=== PATIENT | female | born 1945 | race Caucasian/White ===

== ENCOUNTER → 2018-04-29 14:53 | Outpatient (CLI) | payer MEDICARE, SELFPAY ==
--- NOTE | 2018-04-29 | DI.MG.S_ITS ---
UNILATERAL LEFT DIGITAL SCREENING MAMMOGRAM 3D/2D WITH CAD POST MASTECTOMY WITH AUGMENTATION: 04/29/2018 CLINICAL: Routine screening. Personal history of right breast cancer. Comparison is made to exams dated: 03/06/2017 mammogram, 01/07/2016 mammogram, and 12/01/2014 mammogram - [facility]. The tissue of the left breast is predominantly fatty. Current study was also evaluated with a Computer Aided Detection (CAD) system. Left breast implant is stable and intact. No significant masses, calcifications, or other findings are seen in the breast. There has been no significant interval change. IMPRESSION: NEGATIVE There is no mammographic evidence of malignancy. A 1 year screening mammogram is recommended. This exam was interpreted at Station ID: [id number]. NOTE: For mammograms, a report in lay terms will be sent to the patient. Approximately 15% of breast malignancies will not be visualized mammographically. In the management of a palpable breast mass, a negative mammogram must not discourage biopsy of a clinically suspicious lesion. Electronically Signed By: Yfn quinteros/evelyn:04/29/2018 21:54:13 letter sent: Normal Exam ACR BI-RADS Category 1: Negative 3341F
== END ==
PROVIDERS: Family Provider Family Medicine; PCP Family Medicine; Visit Provider Family Medicine
DX: Z12.31 Encounter for screening mammogram for malignant neoplasm of breast (principal); Z85.3 Personal history of malignant neoplasm of breast
CPT/HCPCS: 77063; 77065

== ENCOUNTER → 2019-05-04 08:57 | Outpatient (CLI) | payer MEDICARE, SELFPAY ==
--- NOTE | 2019-05-04 | DI.MG.S_ITS ---
UNILATERAL LEFT DIGITAL SCREENING MAMMOGRAM 3D/2D WITH CAD POST MASTECTOMY WITH AUGMENTATION: 05/04/2019 CLINICAL: Routine screening. Personal history of right breast cancer. Comparison is made to exams dated: 04/29/2018 mammogram, 03/06/2017 mammogram, 01/07/2016 mammogram, and 12/01/2014 mammogram - [facility]. There are scattered fibroglandular elements in left breast. Current study was also evaluated with a Computer Aided Detection (CAD) system. Left breast implant is stable. No significant masses, calcifications, or other findings are seen in the breast. There has been no significant interval change. IMPRESSION: NEGATIVE There is no mammographic evidence of malignancy. A 1 year screening mammogram is recommended. This exam was interpreted at Station ID: [id number]. NOTE: For mammograms, a report in lay terms will be sent to the patient. Approximately 15% of breast malignancies will not be visualized mammographically. In the management of a palpable breast mass, a negative mammogram must not discourage biopsy of a clinically suspicious lesion. Electronically Signed By: Yfn quinteros/evelyn:05/04/2019 10:15:21 letter sent: Normal Exam ACR BI-RADS Category 1: Negative 3341F
== END ==
PROVIDERS: Family Provider Family Medicine; PCP Family Medicine; Visit Provider Family Medicine
DX: Z12.31 Encounter for screening mammogram for malignant neoplasm of breast (principal); Z85.3 Personal history of malignant neoplasm of breast
CPT/HCPCS: 77063; 77067

== ENCOUNTER → 2019-10-17 13:17 | Outpatient (CLI) | payer MEDICARE, SELFPAY ==
--- NOTE | 2019-10-17 13:20 | DI.RAD.S_ITS ---
PROCEDURE: XR FOOT RT MIN 3V INDICATIONS: Right foot pain TECHNIQUE: 3 views of the foot were acquired. COMPARISON: None. FINDINGS: Bones: Transverse fracture of the base of the fifth metatarsal. No significant displacement. No dislocations. No suspicious bony lesions. Soft tissues: No tibiotalar joint effusion. Achilles tendon appears normal. IMPRESSION: Transverse fracture at the base of the fifth metatarsal. Dictated by: Jose Alfredo Vázquez M.D. on 10/17/2019 at 13:48 Approved by: Jose Alfredo Vázquez M.D. on 10/17/2019 at 13:55
== END ==
PROVIDERS: PCP Family Medicine; Visit Provider Nurse Practitioner
DX: M79.671 Pain in right foot (principal); S92.351A Displaced fracture of fifth metatarsal bone, right foot, initial encounter for closed fracture
CPT/HCPCS: 73630

== ENCOUNTER → 2019-11-18 12:04 | Outpatient (CLI) | payer MEDICARE, SELFPAY ==
--- NOTE | 2019-11-18 | DI.RAD.S_ITS ---
PROCEDURE: XR FOOT RT MIN 3V INDICATIONS: Displaced fracture of fifth metatarsal bone, right foot, ini TECHNIQUE: 3 views of the foot were acquired. COMPARISON: [facility], , XR FOOT RT MIN 3V, 10/17/2019, 13:20. FINDINGS: Bones: Unchanged alignment of fifth metatarsal base fracture. There is interval healing sclerosis. Soft tissues: No tibiotalar joint effusion. Achilles tendon appears normal. IMPRESSION: No change in alignment Dictated by: Chino Bailey M.D. on 11/18/2019 at 16:52 Approved by: Chino Bailey M.D. on 11/18/2019 at 16:53
== END ==
PROVIDERS: PCP Family Medicine; Referring Provider Family Medicine; Visit Provider Family Medicine
DX: S92.351A Displaced fracture of fifth metatarsal bone, right foot, initial encounter for closed fracture (principal)
CPT/HCPCS: 73630

== ENCOUNTER → 2019-12-16 13:49 | Outpatient (CLI) | payer MEDICARE, SELFPAY ==
--- NOTE | 2019-12-16 | DI.RAD.S_ITS ---
PROCEDURE: XR FOOT RT MIN 3V INDICATIONS: RIGHT FOOT PAIN TECHNIQUE: 3 views of the foot were acquired. COMPARISON: [facility], , XR FOOT RT MIN 3V, 11/18/2019, 12:24. FINDINGS: Bones: No fractures or dislocations. No suspicious bony lesions. Mild first MTP joint degeneration. Unchanged alignment of fifth metatarsal base fracture Soft tissues: No tibiotalar joint effusion. Achilles tendon appears normal. IMPRESSION: Unchanged alignment of fifth metatarsal base fracture Dictated by: Chino Bailey M.D. on 12/16/2019 at 14:51 Approved by: Chino Bailey M.D. on 12/16/2019 at 14:53
== END ==
PROVIDERS: PCP Family Medicine; Referring Provider Family Medicine; Visit Provider Family Medicine
DX: M25.571 Pain in right ankle and joints of right foot (principal); S92.351A Displaced fracture of fifth metatarsal bone, right foot, initial encounter for closed fracture; X58.XXXA Exposure to other specified factors, initial encounter
CPT/HCPCS: 73630

== ENCOUNTER → 2020-03-27 14:22 | Outpatient (CLI) | payer MEDICARE, SELFPAY ==
[2020-03-28 09:48] LABS: COVID19 Sendout Not Detected (Not Detect)
== END ==
PROVIDERS: PCP Family Medicine; Visit Provider Registered Nurse
DX: Z01.812 Encounter for preprocedural laboratory examination (principal)
CPT/HCPCS: 87635

== ENCOUNTER 2020-03-30 12:36 | Day surgery (SDC) | payer MEDICARE, SELFPAY ==
--- NOTE | 2020-03-30 07:13 | PM.HP.1 ---
History of Present Illness History of Present Illness Date Patient Seen: 03/30/20 Time Patient Seen: 13:35 Chief complaint: [id number] Narrative: 74 year old female comes in today for consideration of a screening colonoscopy. History of colonic polyps; last colonoscopy over 10 years ago. Results not available at time of dictation. Prior to that, thinks that she had a sigmoidoscopy as well. There have been no lower GI symptoms suggesting disease such as change in bowel habits, bleeding, abdominal pain or anemia. There's been no family history of colon cancer or colon polyps. Overall health issues have been stable, including no major cardiac events for at least 6 weeks. PCP: Dr. Bonner Past medical history: Osteoporosis Hyperlipidemia History of breast cancer History of colon polyps Actinic keratosis Right foot fracture Vertigo Past surgical history: Mastectomy, right Breast reconstruction Hysterectomy section Family history: No colon cancer/polyps. 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 Meds Home Medications and Allergies Home Medications Medication Instructions Recorded Confirmed Type aspirin 81 mg tablet,delayed 81 mg PO DAILY 10/17/19 03/30/20 History release atorvastatin 40 mg tablet 40 mg PO DAILY 10/17/19 03/30/20 History calcium carbonate PO 10/17/19 10/17/19 History cholecalciferol (vitamin D3) 25 1,000 unit PO DAILY 10/17/19 03/30/20 History mcg (1,000 unit) capsule glucosamine HCl PO 10/17/19 10/17/19 History multivitamin 1 tab PO DAILY 10/17/19 03/30/20 History vitamin B complex 1 tab PO DAILY 10/17/19 03/30/20 History Allergies Allergy/AdvReac Type Severity Reaction Status Date / Time No Known Drug Allergies Allergy Verified 03/30/20 12:36 Review of Systems Review of Systems ROS: Yes All systems reviewed with the patient and are negative except as otherwise documented Exam Narrative Exam Narrative: GENERAL: Alert and oriented, appearing stated age and in no acute distress. HEENT: Head normocephalic/atraumatic. Pupils equal, round, and reactive to light and accomodation. Extraocular muscles intact. Tympanic membranes clear. Nasal mucosa moist, septum midline. Oral mucosa moist, no lesions. Neck soft and supple, no lymphadenopathy. LUNGS: Clear to ausculation bilaterally, no wheezes, rhonchi or rales. CV: Normal S1 and S2 with regular rate and rhythm, no audible murmurs, rubs or gallops. ABDOMEN: Soft, non-tender, non-distended, no organomegaly. Positive bowel sounds. EXTREMITIES: No clubbing, cyanosis, or edema. NEURO: Cranial nerves II through XII grossly intact, no focal deficits. PSYCH: Alert and oriented x 3. SKIN: No concerning lesions. Assessment & Plan Assessment & Plan narrative: 1. History of colon polyps 2. Screening for colon cancer Plan for colonoscopy. The nature and character of the procedure as well as anticipated results were discussed. The possibility of not completing the procedure was also discussed. Possible complications including aspiration pneumonia, bleeding, perforation and reaction to medications either for sedation or preparation and missed lesions were discussed. Questions were answered and proceeding to the colonoscopy was elected. Informed consent signed. I sincerely appreciate the referral allowing me to participate in this patient's care. Please contact me with any questions or concerns.
--- NOTE | 2020-03-30 07:14 | PM.OP.ENDO ---
Operative Date/Time/Diagnoses Date of procedure: 03/30/20 Time of procedure: 13:37 Pre-op diagnosis: 1. History of colon polyps 2. Screening for colon cancer Post-op diagnosis: other (1. Normal colonoscopy, 2. Pancolonic diverticulosis) Procedure & Clinicians Study performed: Colonoscopy Same procedure as scheduled: Yes Indications: 1. History of colon polyps 2. Screening for colon cancer Surgeon: Joyce Rodríguez Procedure Notes SCOAP/Timeout: 13:37 Procedure in detail: ENDOSCOPIST: Joyce Rodríguez MD Sedation RN: Emilia Shrestha RN Sedation start time: 1:37 p.m. Sedation end time: 1:53 p.m. PROCEDURE: Colonoscopy INDICATIONS: 1. History of colon polyps 2. Screening for colon cancer MEDICATION: Levsin 0.125 mg sublingual, incremental doses of Versed and fentanyl until appropriate level sedation achieved. ASA CLASS: 2 CECAL WITHDRAWAL TIME: 6 minutes COMPLICATIONS: None. EXTENT OF PROCEDURE: Cecum. QUALITY OF PREP: Good with portions of liquid stool. PROCEDURE: Prior to insertion of the colonoscope, a digital rectal examination was accomplished with circumferential palpation of the distal rectal mucosa without significant findings being noted. The high-definition pediatric colonoscope was passed into the rectum in the usual fashion and advanced over to the cecum without difficulty. The ileocecal valve, appendiceal stoma, and medial wall all could be inspected and no abnormalities were seen. ASCENDING COLON: As the colonoscope was withdrawn, care was taken to expose and inspect the haustral folds and pancolonic diverticulosis was noted throughout withdrawal. HEPATIC FLEXURE: Normal, no polyps or other abnormalities. TRANSVERSE COLON: Normal, no polyps or other abnormalities. DESCENDING COLON: Normal, no polyps or other abnormalities. SIGMOID COLON: Normal, no polyps or other abnormalities. RECTUM: Normal. J maneuver was produced. There was no significant perianal disease. The J maneuver was broken. The remainder of the rectum was inspected and there was no external hemorrhoid disease. The scope was withdrawn. IMPRESSION: 1. Normal colonoscopy 2. Pancolonic diverticulosis, mild PLAN: 1. This can be patient's last lifetime colonoscopy. The possibility of a missed lesion including a malignancy has been discussed with the patient previously. Potential alarm symptoms have been discussed and should be reported immediately. Specimen(s): none sent Complications: none Post-procedure Follow up: as needed Disposition: PACU
[2020-03-30 12:50] VITALS: BP 139/69; PULSE 86; RESP 16; TEMP 36.5; O2SAT 99; BMI 26.4
[2020-03-30] MEDS: HYOSCYAMINE 0.125 MG TABLET PO ×2 (12:58)
[2020-03-30] MEDS: LACTATED RINGERS 1,000 ML 200 ML IV (12:58)
[2020-03-30] MEDS: MIDAZOLAM 5 MG/5 ML VIAL IV (13:37)
[2020-03-30] MEDS: fentaNYL 250 MCG/5 ML INJ IV (13:38)
[2020-03-30 13:59] VITALS: BP 126/63; PULSE 71; RESP 13; TEMP 36.5; O2SAT 95
[2020-03-30 14:01] VITALS: BP 125/53; PULSE 78; RESP 16; O2SAT 94
--- NOTE | 2020-03-30 14:01 | SUR.PHASEI ---
stable PACU report to Ann.
[2020-03-30 14:06] VITALS: BP 127/64; PULSE 80; RESP 16; O2SAT 96
[2020-03-30 14:16] VITALS: BP 118/63; PULSE 75; RESP 14; O2SAT 95
[2020-03-30 14:21] VITALS: BP 117/66; PULSE 71; RESP 13; TEMP 36.2; O2SAT 96
--- NOTE | 2020-03-30 14:31 | SUR.PHASEII ---
1418 to OPD, awake, oriented, feels ready to go home. Ride called, IV dc'd and clothes given
== END 2020-03-30 14:35 | disposition home or self-care (01) ==
PROVIDERS: PCP Family Medicine; Referring Provider Student in an Organized Health Care Education/Training Program; Visit Provider Student in an Organized Health Care Education/Training Program
PROC: 0DJD8ZZ Inspection of Lower Intestinal Tract, Via Natural or Artificial Opening Endoscopic (ICD-10-PCS; CPT 45378; principal; 2020-03-30 13:45)
DX: Z12.11 Encounter for screening for malignant neoplasm of colon (principal); Z86.010 Personal history of colon polyps; K57.30 Diverticulosis of large intestine without perforation or abscess without bleeding
CPT/HCPCS: G0105; J2250; J3010

== ENCOUNTER → 2020-06-04 14:59 | Outpatient (CLI) | payer MEDICARE, SELFPAY ==
--- NOTE | 2020-06-04 | DI.MG.S_ITS ---
UNILATERAL LEFT DIGITAL SCREENING MAMMOGRAM 3D/2D WITH CAD WITH AUGMENTATION: 06/04/2020 CLINICAL: Routine screening. Breast cancer. Comparison is made to exams dated: 05/04/2019 mammogram, 04/29/2018 mammogram, and 03/06/2017 mammogram - [facility]. There are scattered fibroglandular elements in left breast. Current study was also evaluated with a Computer Aided Detection (CAD) system. Left breast implant is stable. No significant masses, calcifications, or other findings are seen in the breast. There has been no significant interval change. IMPRESSION: NEGATIVE There is no mammographic evidence of malignancy. A 1 year screening mammogram is recommended. This exam was interpreted at Station ID: [id number]. NOTE: For mammograms, a report in lay terms will be sent to the patient. Approximately 15% of breast malignancies will not be visualized mammographically. In the management of a palpable breast mass, a negative mammogram must not discourage biopsy of a clinically suspicious lesion. Electronically Signed By: James morales/evelyn:06/04/2020 20:12:10 letter sent: Normal Exam ACR BI-RADS Category 1: Negative 3341F
== END ==
PROVIDERS: PCP Family Medicine; Referring Provider Family Medicine; Visit Provider Family Medicine
DX: Z12.31 Encounter for screening mammogram for malignant neoplasm of breast (principal); Z85.3 Personal history of malignant neoplasm of breast; Z98.82 Breast implant status
CPT/HCPCS: 77063; 77067

== ENCOUNTER → 2021-06-07 10:54 | Outpatient (CLI) | payer MEDICARE, SELFPAY ==
--- NOTE | 2021-06-07 | DI.MG.S_ITS ---
UNILATERAL LEFT DIGITAL SCREENING MAMMOGRAM 3D/2D WITH CAD WITH AUGMENTATION: 06/07/2021 CLINICAL: Routine screening. Personal history of right breast cancer. Comparison is made to exams dated: 06/04/2020 mammogram, 05/04/2019 mammogram, and 04/29/2018 mammogram - [facility]. There are scattered fibroglandular elements in left breast. Current study was also evaluated with a Computer Aided Detection (CAD) system. Left breast implant is stable. No significant masses, calcifications, or other findings are seen in the breast. There has been no significant interval change. IMPRESSION: NEGATIVE There is no mammographic evidence of malignancy. A 1 year screening mammogram is recommended. This exam was interpreted at Station ID: [id number]. NOTE: For mammograms, a report in lay terms will be sent to the patient. Approximately 15% of breast malignancies will not be visualized mammographically. In the management of a palpable breast mass, a negative mammogram must not discourage biopsy of a clinically suspicious lesion. Electronically Signed By: James morales/evelyn:06/07/2021 14:13:41 letter sent: Normal Exam ACR BI-RADS Category 1: Negative 3341F
== END ==
PROVIDERS: PCP Family Medicine; Referring Provider Family Medicine; Visit Provider Family Medicine
DX: Z12.31 Encounter for screening mammogram for malignant neoplasm of breast (principal); Z85.3 Personal history of malignant neoplasm of breast
CPT/HCPCS: 77063; 77067

== ENCOUNTER → 2022-03-31 10:36 | Outpatient (CLI) | payer MEDICARE, SELFPAY | PROVIDERS: PCP Family Medicine; Referring Provider Family Medicine; Visit Provider Family Medicine | DX: M81.0 Age-related osteoporosis without current pathological fracture (principal); Z90.710 Acquired absence of both cervix and uterus | CPT/HCPCS: 77080 ==

== ENCOUNTER → 2022-05-23 09:38 | Outpatient (CLI) | payer MEDICARE, SELFPAY ==
--- NOTE | 2022-05-23 09:41 | DI.RAD.S_ITS ---
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 COMPARISON: None. FINDINGS: Bones: No fractures or dislocations. No suspicious bony lesions. Mild tricompartmental osteoarthritis. Soft tissues: No joint effusion. No suspicious soft tissue calcifications. IMPRESSION: No fracture. No acute osseous lesion. If symptoms and/or clinical suspicion for pathology persists, further assessment with repeat radiographs (7-10 days) or advanced imaging (e.g. CT, MRI or bone scan) should be considered. Dictated by: Cherrie Vargas MD, PhD on 05/23/2022 at 9:50 Approved by: Cherrie Vargas MD, PhD on 05/23/2022 at 9:51
== END ==
PROVIDERS: PCP Family Medicine; Referring Provider Student in an Organized Health Care Education/Training Program; Visit Provider Student in an Organized Health Care Education/Training Program
DX: M25.461 Effusion, right knee (principal); M25.561 Pain in right knee
CPT/HCPCS: 73562

== ENCOUNTER → 2022-05-28 12:14 | Outpatient (CLI) | payer MEDICARE, SELFPAY ==
--- NOTE | 2022-05-28 | DI.RAD.S_ITS ---
PROCEDURE: XR KNEE RT 3V INDICATIONS: RIGHT KNEE PAIN TECHNIQUE: 3 views of the knee were acquired. COMPARISON: [facility], , XR KNEE RT 3V, 05/23/2022, 10:04. FINDINGS: Bones: No fractures or dislocations. No suspicious bony lesions. Lateral severe compartmental joint space narrowing with small marginal osteophyte . Soft tissues: Small joint effusion IMPRESSION: Advanced lateral compartmental joint space narrowing Approved by: Zachary Wilson M.D. on 05/28/2022 at 14:40
== END ==
PROVIDERS: PCP Family Medicine; Referring Provider Family Medicine; Visit Provider Family Medicine
DX: M25.461 Effusion, right knee (principal); M25.561 Pain in right knee
CPT/HCPCS: 73562

== ENCOUNTER → 2022-07-03 11:10 | Outpatient (CLI) | payer MEDICARE, SELFPAY ==
--- NOTE | 2022-07-03 | DI.MG.S_ITS ---
UNILATERAL LEFT DIGITAL SCREENING MAMMOGRAM 3D/2D WITH CAD WITH AUGMENTATION: 07/03/2022 CLINICAL: Routine screening. Personal history of right breast cancer. Comparison is made to exams dated: 06/07/2021 mammogram, 06/04/2020 mammogram, and 05/04/2019 mammogram - [facility]. There are scattered areas of fibroglandular density in the left breast (category b / 25%-50% glandular tissue). Current study was also evaluated with a Computer Aided Detection (CAD) system. Left breast implant is stable. No significant masses, calcifications, or other findings are seen in the breast. There has been no significant interval change. IMPRESSION: NEGATIVE There is no mammographic evidence of malignancy. A 1 year screening mammogram is recommended. This exam was interpreted at Station ID: [id number]. NOTE: For mammograms, a report in lay terms will be sent to the patient. Approximately 15% of breast malignancies will not be visualized mammographically. In the management of a palpable breast mass, a negative mammogram must not discourage biopsy of a clinically suspicious lesion. Electronically Signed By: Bharat Quintanilla M.D., jr/evelyn:07/03/2022 11:43:29 letter sent: Normal Exam ACR BI-RADS Category 1: Negative 3341F
== END ==
PROVIDERS: PCP Family Medicine; Referring Provider Family Medicine; Visit Provider Family Medicine
DX: Z12.31 Encounter for screening mammogram for malignant neoplasm of breast (principal); Z85.3 Personal history of malignant neoplasm of breast
CPT/HCPCS: 77063; 77067

== ENCOUNTER → 2022-09-08 08:18 | Outpatient (CLI) | payer MEDICARE, SELFPAY ==
--- NOTE | 2022-09-08 | DI.NM.S_ITS ---
PROCEDURE: NM HOLLY PERF SPECT REST & STR Rest and exercise myocardial perfusion SPECT with gated imaging and ejection fraction RADIOPHARMACEUTICAL: 11.6 mCi Tc-99m sestamibi IV at rest and 25.4 mCi Tc-99m sestamibi IV at peak exercise. A [id number] was performed. INDICATIONS: Dyspnea on exertion TECHNIQUE: Radiopharmaceutical was injected at peak stress test, and also at rest. SPECT images were obtained. SPECT myocardial perfusion images were displayed in short axis, horizontal long axis, and vertical long axis views. Gated images were reviewed using [employer] software. COMPARISON: None. CARDIAC STRESS: A standard Trevor treadmill exercise tolerance test was performed by the patient under the supervision of an attending staff. The patient exercised for 7 minutes and 19 seconds; 10.1 METS; functional aerobic impairment (SAUL) is -40%. Hemodynamic data: There is normal blood pressure and heart rate response to exercise stress. Patient achieved 90% of maximum predicted heart rate at peak exercise. Symptoms: Patient denied chest pain during exercise. EKG: No diagnostic EKG changes of ischemia; frequent PVCs in recovery. FINDINGS: Raw data: There is good myocardial labeling by radiotracer. No significant motion artifacts. Ervc-hf-qyupr ratio is 0.27 (normal is less than 0.38 for sestamibi tracer, and less than 0.50 for thallium tracer). Left ventricle function: Gated images demonstrate normal left ventricle wall thickening. No segmental wall motion abnormality. No transient ischemic dilation; TID is 0.97 (normal less than 1.3). The left ventricle resting end-diastolic volume is 77 mL. Left ventricle stress ejection fraction is >75%; normal values are above 45%. Myocardial perfusion: There is a medium size, mild intensity fixed anterior wall defect that resolves in prone imaging. IMPRESSION: Low risk study without evidence of inducible ischemia or scar. The medium size, mild intensity fixed anterior wall defect resolves with prone imaging making this most consistent with breast attenuation. Hyperdynamic left ventricular function. The exercise ECG did not show evidence of ST segment changes however there were frequent PVCs noted in recovery. Normal hemodynamic response to exercise. Very good exercise capacity. Dictated by: Monique Padgett D.O. on 09/08/2022 at 15:38 Approved by: Monique Padgett D.O. on 09/08/2022 at 15:43
[2022-09-08 09:47] LABS: COVID19 -Nasal RAPID Negative (Negative)
== END ==
PROVIDERS: PCP Family Medicine; Referring Provider Family Medicine; Visit Provider Family Medicine
DX: R06.09 Other forms of dyspnea (principal); Z20.822 Contact with and (suspected) exposure to COVID-19
CPT/HCPCS: 78452; 87635; 93017; A9502

== ENCOUNTER → 2022-10-22 15:58 | Outpatient (CLI) | payer MEDICARE, OTHER, SELFPAY ==
--- NOTE | 2022-10-22 | DI.RAD.S_ITS ---
PROCEDURE: XR FEMUR LT MIN 2V INDICATIONS: PAIN TECHNIQUE: 2 views of the femur were acquired. COMPARISON: None. FINDINGS: Bones: No acute fractures or dislocations. No suspicious bony lesions. Small suprapatellar enthesophyte. Soft tissues: No suspicious soft tissue calcifications or masses. IMPRESSION: No acute osseous abnormality. If the symptoms persist, consider cross sectional imaging such as MRI or CT for further assessment. Approved by: Cyrus Dudley M.D. on 10/22/2022 at 17:04
== END ==
PROVIDERS: PCP Family Medicine; Referring Provider Family Medicine; Visit Provider Family Medicine
DX: M79.652 Pain in left thigh (principal)
CPT/HCPCS: 73552

== ENCOUNTER → 2023-07-22 14:00 | Outpatient (CLI) | payer MEDICARE, OTHER, SELFPAY ==
--- NOTE | 2023-07-22 | DI.MG.S_ITS ---
UNILATERAL LEFT DIGITAL SCREENING MAMMOGRAM 3D/2D WITH CAD POST MASTECTOMY WITH AUGMENTATION: 07/22/2023 CLINICAL: Routine screening. Personal history of right breast cancer. Comparison is made to exams dated: 07/03/2022 mammogram, 06/07/2021 mammogram, and 06/04/2020 mammogram - [facility]. There are scattered areas of fibroglandular density in the left breast (category b / 25%-50% glandular tissue). Current study was also evaluated with a Computer Aided Detection (CAD) system. Left breast implant is stable. No significant masses, calcifications, or other findings are seen in the breast. There has been no significant interval change. IMPRESSION: NEGATIVE There is no mammographic evidence of malignancy. A 1 year screening mammogram is recommended. This exam was interpreted at Station ID: [id number]. NOTE: For mammograms, a report in lay terms will be sent to the patient. Approximately 15% of breast malignancies will not be visualized mammographically. In the management of a palpable breast mass, a negative mammogram must not discourage biopsy of a clinically suspicious lesion. Electronically Signed By: Jose Alfredo li/evelyn:07/22/2023 16:41:55 letter sent: Normal Exam ACR BI-RADS Category 1: Negative 3341F
== END ==
PROVIDERS: PCP Family Medicine; Referring Provider Family Medicine; Visit Provider Family Medicine
DX: Z12.31 Encounter for screening mammogram for malignant neoplasm of breast (principal); Z85.3 Personal history of malignant neoplasm of breast
CPT/HCPCS: 77063; 77067

== ENCOUNTER → 2024-08-02 15:06 | Outpatient (CLI) | payer MEDICARE, OTHER, SELFPAY ==
--- NOTE | 2024-08-02 | DI.MG.S_ITS ---
UNILATERAL LEFT DIGITAL SCREENING MAMMOGRAM 3D/2D WITH CAD POST MASTECTOMY WITH AUGMENTATION: 08/02/2024 CLINICAL: Routine screening. Personal history of right breast cancer. Comparison is made to exams dated: 07/22/2023 mammogram, 07/03/2022 mammogram, and 06/07/2021 mammogram - [facility]. There are scattered areas of fibroglandular density (category b / 25%-50% glandular tissue). Current study was also evaluated with a Computer Aided Detection (CAD) system. Left breast implant is stable. No significant masses, calcifications, or other findings are seen in the breast. There has been no significant interval change. IMPRESSION: BENIGN There is no mammographic evidence of malignancy. A 1 year screening mammogram is recommended. This exam was interpreted at Station ID: [id number]. NOTE: For mammograms, a report in lay terms will be sent to the patient. Approximately 15% of breast malignancies will not be visualized mammographically. In the management of a palpable breast mass, a negative mammogram must not discourage biopsy of a clinically suspicious lesion. Electronically Signed By: Annie Levin M.D., Ph.D. kiara/penrad:08/04/2024 17:24:31 letter sent: Normal Exam ACR BI-RADS Category 2: Benign
== END ==
LOC: MAMMO 15:08
PROVIDERS: PCP Family Medicine; Referring Provider Family Medicine; Visit Provider Family Medicine
DX: Z12.31 Encounter for screening mammogram for malignant neoplasm of breast (principal); Z85.3 Personal history of malignant neoplasm of breast
CPT/HCPCS: 77063; 77067

== ENCOUNTER → 2024-08-22 15:08 | Outpatient (CLI) | payer MEDICARE, OTHER, SELFPAY ==
--- NOTE | 2024-08-22 15:10 | DI.RAD.S_ITS ---
PROCEDURE: XR DEXA AXIAL SKELETON INDICATIONS: AGE RELATED OSTEOPOROSIS COMPARISON: [facility], CR, XR DEXA AXIAL SKELETON, 03/31/2022, 10:54. FINDINGS: Lumbar Spine: Bone mineral density 0.818 g/cm2, T score -2.1, compared to -3.1. Left Hip: Bone mineral density 0.779 g/cm2, T score -1.3, -1.2. Left Femoral Neck: Bone mineral density 0.600 g/cm2, T score -2.2, compared to -2.4. Right Hip: Bone mineral density 0.713 g/cm2, T score 0.713, -1.9, compared to -1.8. Right Femoral Neck: Bone mineral density 0.566 g/cm2, T score -2.5, compared to -3.2. Fracture Risk Calculation (when applicable): 10-year fracture risk of a major osteoporotic fracture 16 percent and of a hip fracture 4.7 percent. (T score greater or equal to -1.0 to: NORMAL) (T score from -1.1 to -2.4: OSTEOPENIA) (T score less than or equal to -2.5: OSTEOPOROSIS) IMPRESSION: Osteoporosis in the right femoral neck although improved compared to prior exam. Moderate to severe osteopenia improved from osteoporosis in the lumbar spine. Follow-up guidelines as follows: Osteoporosis: Consider a repeat DEXA and Vertebral Fracture Assessment (VFA) exam in 2 years or sooner if medically necessary, to reassess this patient's status. Osteopenia: Consider a repeat DEXA in 2-3 years to reassess this patient's status, or if there is a new clinical indication. Normal: Consider a repeat DEXA in 5 years or sooner, or if there is a new clinical indication. All treatment decisions require clinical judgment and consideration of individual patient factors, including patient preferences, comorbidities, previous drug use, risk factors not captured in the FRAX model (e.g., frailty, falls, vitamin D deficiency, increased bone turnover, interval significant decline in bone density ) and possible under- or over-estimation of fracture risk by FRAX. In addition, the NOF Guide recommends that FDA-approved medical therapies be considered in postmenopausal women and men age >= 50 years with a: * Hip or vertebral (clinical or morphometric) fracture * T-score of <=-2.5 at the spine or hip * Ten-year fracture probability by FRAX of >= 3% for hip fracture or >=20% for major osteoporotic fracture. People with diagnosed cases of osteoporosis or at high risk for fracture should have regular bone mineral density tests. For patients eligible for Medicare, routine testing is allowed once every 2 years. The testing frequency can be increased to one year for patients who have rapidly progressing disease, those who are receiving or discontinuing medical therapy to restore bone mass, or have additional risk factors. Dictated by: Lucie Fonseca M.D. on 08/22/2024 at 20:18 Approved by: Lucie Fonseca M.D. on 08/22/2024 at 20:21
== END ==
PROVIDERS: PCP Family Medicine; Referring Provider Family Medicine; Visit Provider Family Medicine
DX: M81.0 Age-related osteoporosis without current pathological fracture (principal)
CPT/HCPCS: 77080

== ENCOUNTER → 2025-08-16 15:38 | Outpatient (CLI) | payer MEDICARE, OTHER, SELFPAY ==
--- NOTE | 2025-08-16 15:39 | DI.MG.S_ITS ---
MM screening mammo uni impl LT: 08/16/2025. BI-RADS: 2
== END ==
PROVIDERS: PCP Family Medicine; Referring Provider Family Medicine; Visit Provider Family Medicine
DX: Z12.31 Encounter for screening mammogram for malignant neoplasm of breast (principal); Z85.3 Personal history of malignant neoplasm of breast; Z98.82 Breast implant status
CPT/HCPCS: 77063; 77067